=== PATIENT | female | born 1975 | race Caucasian/White ===

== ENCOUNTER → 2022-06-08 07:49 | Outpatient (CLI) | payer OTHER, SELFPAY ==
--- NOTE | 2022-06-08 | DI.MG.S_ITS ---
BILATERAL DIGITAL SCREENING MAMMOGRAM 3D/2D WITH CAD: 06/08/2022 CLINICAL: Routine screening. Family history of breast cancer. Comparison is made to exams dated: 05/03/2021 mammogram - [facility], 04/15/2020 mammogram - [facility], and 05/28/2021 mammogram - [facility]. There are scattered areas of fibroglandular density in both breasts (category b / 25%-50% glandular tissue). Current study was also evaluated with a Computer Aided Detection (CAD) system. No significant masses, calcifications, or other findings are seen in either breast. There has been no significant interval change. IMPRESSION: NEGATIVE There is no mammographic evidence of malignancy. A 1 year screening mammogram is recommended. Based on the Tyrer Cuzick model (a risk assessment model) the patient's lifetime risk is 7.6% and her 10 year risk is 1.5%. According to the ACR, ACS, and NCCN guidelines, an annual breast MRI exam along with mammogram is recommended if the patient's lifetime risk is 20% or greater. This exam was interpreted at Station ID: [id number]. NOTE: For mammograms, a report in lay terms will be sent to the patient. Approximately 15% of breast malignancies will not be visualized mammographically. In the management of a palpable breast mass, a negative mammogram must not discourage biopsy of a clinically suspicious lesion. Electronically Signed By: Jean-Claude reza/danny:06/08/2022 13:14:15 letter sent: Normal Exam ACR BI-RADS Category 1: Negative 3341F
== END ==
PROVIDERS: PCP Student in an Organized Health Care Education/Training Program; Referring Provider Student in an Organized Health Care Education/Training Program; Visit Provider Student in an Organized Health Care Education/Training Program
DX: Z12.31 Encounter for screening mammogram for malignant neoplasm of breast (principal); Z80.3 Family history of malignant neoplasm of breast
CPT/HCPCS: 77063; 77067

== ENCOUNTER → 2022-07-01 15:20 | Outpatient (CLI) | payer OTHER, SELFPAY | PROVIDERS: PCP Student in an Organized Health Care Education/Training Program; Referring Provider Internal Medicine; Visit Provider Internal Medicine | DX: Z23 Encounter for immunization (principal) | CPT/HCPCS: 90471; 90686 ==

== ENCOUNTER → 2022-11-10 07:43 | Outpatient (CLI) | payer OTHER, SELFPAY ==
[2022-11-10 08:26] LABS: Add Manual Diff / Slide Review NO; Basophils Absolute Auto 0 /uL (0-100); Basophils Percent Auto 0.6 % (0-2); Eosinophils Absolute Auto 200 /uL (0-450); Eosinophils Percent Auto 2.2 % (2-4); Hematocrit 38.2 % (36-46); Hemoglobin 12.6 g/dL (12.0-16.0); Lymphocytes Absolute Auto 2400 /uL (1100-4500); Lymphocytes Percent Auto 27.7 % (25-40); Mean Corpuscular HGB Conc 33.1 % (30-36); Mean Corpuscular Volume 90.8 fL (80-100); Monocytes Absolute Auto 500 /uL (0-900); Neutrophils Absolute Auto 5600 /uL (1500-7000); Neutrophils Percent Auto 63.5 % (50-75); Platelet Count 288 X10^3/uL (150-400); Red Blood Cell Count 4.21 X10^6/uL (4.0-5.2); Red Cell Distribution Width 14.2 % (11.6-14.8); White Blood Cell Count 8.8 X10^3/uL (4.5-11.0)
[2022-11-10 08:34] LABS: Hemoglobin A1C% w Est Avg Glu 5.7 % (4.0-6.0)
[2022-11-10 08:51] LABS: Alanine Aminotransferase 31 IU/L (<35); Albumin Globulin Ratio 1.3 (1.0-2.8); Alkaline Phosphatase 89 U/L (38-126); Aspartate Aminotransferase 23 IU/L (14-36); BUN Creatinine Ratio 23.8 (6-22); Bilirubin Total 0.2 mg/dL (0.2-1.3); Blood Urea Nitrogen 15 mg/dL (7-17); Calcium 8.6 mg/dL (8.4-10.2); Carbon Dioxide 27 mmol/L (22-32); Chloride 106 mmol/L (98-107); Cholesterol 165 mg/dL (140-199); Estimated Glomerular Filt Rate > 60 mL/min (>60); Globulin 3.1 g/dL (1.7-4.1); Glucose 106 mg/dL (70-100); HDL Cholesterol 43 mg/dL (40-60); HEMOLYSIS < 15 (0-50); LDL Cholesterol Calculated 110 mg/dL (<100); Potassium 4.5 mmol/L (3.4-5.1); Sodium 139 mmol/L (137-145); Total Protein 7.1 g/dL (6.3-8.2); Triglycerides 60 mg/dL (35-150)
[2022-11-10 08:57] LABS: Follicle Stimulating Hormone 11.3 mIU/mL; Luteinizing Hormone 23.9 mIU/mL
[2022-11-10 08:58] LABS: Vitamin D 25 Hydroxy (D3) 14.7 ng/mL (30.0-100.0)
[2022-11-10 09:16] LABS: TSH w/ Reflex to FT4 1.64 uIU/mL (0.47-4.68)
[2022-11-10 09:29] LABS: Vitamin B12 Reflex MMA if <400 234 pg/mL (239-931)
[2022-11-15 09:36] LABS: Methylmalonic Acid,Serum 154 nmol/L (0-378)
== END ==
PROVIDERS: PCP Student in an Organized Health Care Education/Training Program; Referring Provider Student in an Organized Health Care Education/Training Program; Visit Provider Student in an Organized Health Care Education/Training Program
DX: R53.83 Other fatigue (principal); E78.49 Other hyperlipidemia; R73.9 Hyperglycemia, unspecified
CPT/HCPCS: 36415; 80053; 80061; 82306; 82607; 83001; 83002; 83036; 83921; 84443; 85025

== ENCOUNTER → 2023-01-24 06:32 | Outpatient (CLI) | payer OTHER, SELFPAY ==
--- NOTE | 2023-01-24 | DI.US.S_ITS ---
PROCEDURE: US PELVIC COMPLETE INDICATIONS: DUB TECHNIQUE: Real-time scanning was performed of the pelvic organs, with image documentation. Additional endovaginal scanning was necessary due to incomplete visualization of the adnexal and endometrial structures by transabdominal scanning. COMPARISON: None. FINDINGS: Uterus: Uterus is anteverted and normal in size at 9 x 5.1 x 6 cm. The myometrium is heterogeneous, with fibroids seen. The largest fibroid is a subserosal fibroid seen along the posterior uterus measuring up to 1.5 cm. The endometrium measures 5 mm combined thickness. No abnormal vascularity can be seen along the endometrial stripe. Ovaries: Neither ovary is seen. No adnexal masses are seen on either side. Other: No pathologic free abdominal or pelvic fluid. IMPRESSION: A cause of the patient's presenting history is not identified. Neither ovary is seen. Incidental note is made of a 1.5 cm subserosal fibroid posteriorly. We strive to produce accurate, complete, and clear reports of imaging services. To assist us in improving patient care, this report was composed using standard report templates and voice recognition software. Therefore, it may contain abnormal punctuation, insertions and/or omissions. Occasional wrong-word or sound-alike substitutions may occur. Though we review the report and make efforts to correct it, we do recommend that the report be read carefully in proper context to recognize any text inaccuracies. Dictated by: Oliver Sin M.D. on 01/24/2023 at 11:11 Approved by: Oliver Sin M.D. on 01/24/2023 at 11:13
== END ==
PROVIDERS: PCP Student in an Organized Health Care Education/Training Program; Referring Provider Student in an Organized Health Care Education/Training Program; Visit Provider Student in an Organized Health Care Education/Training Program
DX: N93.9 Abnormal uterine and vaginal bleeding, unspecified (principal); D25.2 Subserosal leiomyoma of uterus
CPT/HCPCS: 76830; 76856

== ENCOUNTER → 2023-05-19 08:27 | Outpatient (CLI) | payer OTHER, SELFPAY ==
--- NOTE | 2023-05-19 08:29 | DI.RAD.S_ITS ---
PROCEDURE: XR FINGER LT MIN 2V INDICATIONS: Possible foreign body/splinter TECHNIQUE: AP hand, 2 views of the 1st finger(s) acquired. COMPARISON: None. FINDINGS: Bones: No fractures or dislocations. No suspicious bony lesions. Soft tissues: No suspicious soft tissue calcifications. No radiopaque foreign body. IMPRESSION: No radiopaque foreign body demonstrated. Dictated by: Jean-Claude Penn M.D. on 05/19/2023 at 10:04 Approved by: Jean-Claude Penn M.D. on 05/19/2023 at 10:06
== END ==
PROVIDERS: PCP Student in an Organized Health Care Education/Training Program; Referring Provider Nurse Practitioner Family; Visit Provider Nurse Practitioner Family
DX: S60.459A Superficial foreign body of unspecified finger, initial encounter (principal)
CPT/HCPCS: 73140

== ENCOUNTER → 2023-12-25 07:00 | Outpatient (CLI) | payer OTHER, SELFPAY ==
[2023-12-25 07:24] LABS: Add Manual Diff / Slide Review NO; Basophils Absolute Auto 0 /uL (0-100); Basophils Percent Auto 0.5 % (0-2); Eosinophils Absolute Auto 200 /uL (0-450); Eosinophils Percent Auto 2.4 % (2-4); Hematocrit 37.7 % (36-46); Hemoglobin 12.6 g/dL (12.0-16.0); Lymphocytes Absolute Auto 2800 /uL (1100-4500); Lymphocytes Percent Auto 36.5 % (25-40); Mean Corpuscular HGB Conc 33.3 % (30-36); Mean Corpuscular Hemoglobin 30.6 PG (26-34); Mean Corpuscular Volume 91.6 fL (80-100); Monocytes Absolute Auto 500 /uL (0-900); Monocytes Percent Auto 6.4 % (3-14); Neutrophils Absolute Auto 4200 /uL (1500-7000); Neutrophils Percent Auto 54.2 % (50-75); Platelet Count 285 X10^3/uL (150-400); Red Blood Cell Count 4.11 X10^6/uL (4.0-5.2); Red Cell Distribution Width 13.7 % (11.6-14.8); White Blood Cell Count 7.8 X10^3/uL (4.5-11.0)
[2023-12-25 07:34] LABS: Hemoglobin A1C% w Est Avg Glu 5.8 % (4.0-6.0)
[2023-12-25 07:46] LABS: Alanine Aminotransferase 52 IU/L (<35); Albumin 4.5 g/dL (3.5-5.0); Albumin Globulin Ratio 1.5 (1.0-2.8); Alkaline Phosphatase 69 U/L (38-126); Aspartate Aminotransferase 32 IU/L (14-36); BUN Creatinine Ratio 22.7 (6-22); Bilirubin Total 0.6 mg/dL (0.2-1.3); Blood Urea Nitrogen 15 mg/dL (7-17); Calcium 9.1 mg/dL (8.4-10.2); Carbon Dioxide 26 mmol/L (22-32); Chloride 109 mmol/L (98-107); Cholesterol 159 mg/dL (140-199); Estimated Glomerular Filt Rate > 60 mL/min (>60); Globulin 3.1 g/dL (1.7-4.1); Glucose 115 mg/dL (70-100); HDL Cholesterol 37 mg/dL (40-60); HEMOLYSIS < 15 (0-50); LDL Cholesterol Calculated 98 mg/dL (<100); Potassium 4.1 mmol/L (3.4-5.1); Sodium 140 mmol/L (137-145); Total Protein 7.6 g/dL (6.3-8.2); Triglycerides 120 mg/dL (35-150)
[2023-12-25 08:02] LABS: Vitamin D 25 Hydroxy (D3) 37.9 ng/mL (30.0-100.0)
[2023-12-25 08:34] LABS: Vitamin B12 Reflex MMA if <400 364 pg/mL (239-931)
[2023-12-27 07:35] LABS: Methylmalonic Acid,Serum 144 nmol/L (0-378)
== END ==
LOC: LAB 07:02
PROVIDERS: PCP Student in an Organized Health Care Education/Training Program; Referring Provider Student in an Organized Health Care Education/Training Program; Visit Provider Student in an Organized Health Care Education/Training Program
DX: R73.03 Prediabetes (principal); E55.9 Vitamin D deficiency, unspecified; E78.49 Other hyperlipidemia; R79.89 Other specified abnormal findings of blood chemistry; R63.5 Abnormal weight gain
CPT/HCPCS: 36415; 80053; 80061; 82306; 82607; 83036; 83921; 84443; 85025

== ENCOUNTER → 2024-02-15 11:45 | Outpatient (CLI) | payer OTHER, SELFPAY ==
--- NOTE | 2024-02-28 10:52 | DIET.OUTPTC ---
Dietary Outpatient Consultation Note Consultation Date: 02/15/2024 Assessment: 49 y F referred to dietitian for pre-diabetes, other hyperlipidemia, BMI 39.0-39.9. Tatiana is wanting to prevent diabetes and help with sustainable eating patterns. Has busy job/high stress job. Dietary recall: Avg 2 meals/day, difficult to find time for lunch at work B- eggs or breakfast at bistro, misses breakfast sometimes, 2-3x/wk D- Hellofresh, new meals every night, wants to keep meals new and interesting Reports chocolate intake at various times during day, candies are easily accessible at work Drinks: water, 32 oz/d Activity: 1 mile walk/day at work, 3x/wk walk dog 15-30 min, likes riding e-bike Ht: 1.575 m Wt: 98.4 kg BMI: 39.68 Weight history: 05/22/23: 95.254 kg per chart Related labs: A1c 5.8% on 12/25/23, HDL 37 on 12/25/23 Nutrition Diagnosis: Excessive energy intake r/t inconsistent meals and energy dense snack choices aeb dietary recall Inadequate fiber intake r/t convenience snacks, missed meals aeb dietary recall Interventions: 1. Consistent meals/snacks -Patient driven goal setting, addressed barriers and assessed confidence 2. Plate method for balanced meals/snacks -provided educ on food r/t pre-DM, macros, label reading, portion sizing Goals: 1. Consistent breakfast and lunch by using alarm, use of lunch adiel or blocking out time in outlook calendar for lunch 2. Bringing non-perishable snacks to store in office for easy lunch or stopping at bistro 3. Increase fruit or vegetable intake as able by using grocery deliveries for fruit 1x/day and extra vegetables to add to hellofresh meals Monitoring/Evaluations: dietary recall, goals, labs Electronically Signed by: Elda Nino 02/28/24 10:52 Clinical Dietitian [address] [address]
== END ==
PROVIDERS: PCP Student in an Organized Health Care Education/Training Program; Referring Provider Student in an Organized Health Care Education/Training Program
DX: R73.03 Prediabetes (principal); E78.49 Other hyperlipidemia; Z71.3 Dietary counseling and surveillance; Z68.39 Body mass index [BMI] 39.0-39.9, adult
CPT/HCPCS: 97802

== ENCOUNTER → 2024-03-01 09:20 | Outpatient (CLI) | payer OTHER, SELFPAY ==
[2024-03-01 12:05] LABS: Alanine Aminotransferase 40 IU/L (<35); Albumin 4.5 g/dL (3.5-5.0); Albumin Globulin Ratio 1.4 (1.0-2.8); Alkaline Phosphatase 75 U/L (38-126); Aspartate Aminotransferase 29 IU/L (14-36); Bilirubin Total 0.6 mg/dL (0.2-1.3); Bilirubin Unconjugated 0.1 mg/dL (0.0-1.1); Globulin 3.2 g/dL (1.7-4.1); HEMOLYSIS < 15 (0-50); Total Protein 7.7 g/dL (6.3-8.2)
== END ==
PROVIDERS: PCP Student in an Organized Health Care Education/Training Program; Referring Provider Student in an Organized Health Care Education/Training Program; Visit Provider Student in an Organized Health Care Education/Training Program
DX: R74.01 Elevation of levels of liver transaminase levels (principal)
CPT/HCPCS: 36415; 80076

== ENCOUNTER → 2024-03-12 13:04 | Outpatient (CLI) | payer OTHER, SELFPAY ==
--- NOTE | 2024-03-12 16:02 | DIET.OUTPTC ---
Dietary Outpatient Consultation Note Consultation Date: 03/12/2024 Assessment: 49 y F referred to dietitian for pre-diabetes, other hyperlipidemia, BMI 39.0-39.9. Nutrition f/u. Tatiana reports consumption of breakfast and lunch and additional water intake has been successful. Reports decrease in chocolate consumption. Is neutral on hunger/fullness scale when it is lunch and dinner time. Notes whole grains help keep her full for longer. Has questions regarding nutrition when starting Ozempic. Dietary recall: B-whole grain toast with either whipped cream cheese or cottage cheese w/ cucumbers L-soup from [employer] D- Hellofresh, new meals every night, wants to keep meals new and interesting Drinks: water, 32 oz/d +3 mugs (10-12 oz)= 62-68 oz Reviewed content of 2 meals on Hellofresh. Av-11 g SFA, 6-7 g fiber, ~40 g protein, 60 g CHO Activity: 1 mile walk/day at work, 3x/wk walk dog 15-30 min, likes riding e-bike Ht: 1.575 m Wt: 98.4 kg BMI: 39.68 Weight history: 05/22/23: 95.254 kg per chart Related labs: A1c 5.8% on 12/25/23, HDL 37 on 12/25/23 Nutrition Diagnosis: Initial -Excessive energy intake r/t inconsistent meals and energy dense snack choices aeb dietary recall Initial- Inadequate fiber intake r/t convenience snacks, missed meals aeb dietary recall Interventions: 1. Consistent meals/snacks -Continue current implementations, encouraged consistent protein source at breakfast, especially with start of Ozempic 2. Adequate protein/energy intake -Discussed adequate intake w/ start and continuation of Ozempic -Reviewed label reading Goals: 1. Continue consistent breakfast and lunch, protein source at each 2. Continue adequate fluid intake 3. Adequate fiber intake w/ whole grain or double portion veg at dinner as able Monitoring/Evaluations: dietary recall, goals, labs Electronically Signed by: Elda Nino 03/12/24 16:02 Clinical Dietitian [address] [address]
== END ==
PROVIDERS: PCP Student in an Organized Health Care Education/Training Program; Referring Provider Student in an Organized Health Care Education/Training Program
DX: R73.03 Prediabetes (principal); E78.49 Other hyperlipidemia; Z68.39 Body mass index [BMI] 39.0-39.9, adult; Z71.3 Dietary counseling and surveillance
CPT/HCPCS: 97803

== ENCOUNTER → 2024-05-08 12:55 | Outpatient (CLI) | payer OTHER, SELFPAY ==
--- NOTE | 2024-05-08 16:36 | DIET.OUTPTC ---
Dietary Outpatient Consultation Note Consultation Date: 05/08/2024 Assessment: 49 y F referred to dietitian for pre-diabetes, other hyperlipidemia, BMI 39.0-39.9. Nutrition f/u. Pt continues to meet goals set around meals and fluids and has noted positive differences including energy and mood. Has increased activity to 4x/wk of biking/walking. Wants to continue working on adequate fiber intake. Notes was unable to get wegovy from pharmacy at this time. Dietary recall remains the same as last visit. Is cooking dinner some nights over meal services. Interventions: 1. Continue current implementations + additional fiber source w/ lunch or snack when home from work to meet fiber goals 2. Reviewed macronutrients, macro distribution F/u in 6-8 wks. Electronically Signed by: Elda Nino 05/08/24 16:36 Clinical Dietitian [address] [address]
== END ==
PROVIDERS: PCP Student in an Organized Health Care Education/Training Program; Referring Provider Student in an Organized Health Care Education/Training Program
DX: R73.03 Prediabetes (principal); E78.49 Other hyperlipidemia; Z68.39 Body mass index [BMI] 39.0-39.9, adult; Z71.3 Dietary counseling and surveillance
CPT/HCPCS: 97803

== ENCOUNTER → 2024-05-15 08:00 | Outpatient (CLI) | payer OTHER, SELFPAY ==
--- NOTE | 2024-05-15 | DI.MG.S_ITS ---
BILATERAL DIGITAL SCREENING MAMMOGRAM 3D/2D WITH CAD: 05/15/2024 CLINICAL: Routine screening. Family history of breast cancer. Comparison is made to exams dated: 06/08/2022 mammogram - [facility], 05/03/2021 mammogram - [facility], and 04/15/2020 mammogram - [facility]. There are scattered areas of fibroglandular density in both breasts (category b / 25%-50% glandular tissue). Current study was also evaluated with a Computer Aided Detection (CAD) system. No significant masses, calcifications, or other findings are seen in either breast. There has been no significant interval change. IMPRESSION: NEGATIVE There is no mammographic evidence of malignancy. A 1 year screening mammogram is recommended. Based on the Tyrer Cuzick model (a risk assessment model) the patient's lifetime risk is 7.7% and her 10 year risk is 1.7%. According to the ACR, ACS, and NCCN guidelines, an annual breast MRI exam along with mammogram is recommended if the patient's lifetime risk is 20% or greater. This exam was interpreted at Station ID: [id number]. NOTE: For mammograms, a report in lay terms will be sent to the patient. Approximately 15% of breast malignancies will not be visualized mammographically. In the management of a palpable breast mass, a negative mammogram must not discourage biopsy of a clinically suspicious lesion. Electronically Signed By: Violet Keita M.D., Ph.D. eliceo/danny:05/15/2024 12:46:23 letter sent: Normal Exam ACR BI-RADS Category 1: Negative 3341F
== END ==
LOC: MAMMO 08:00
PROVIDERS: PCP Student in an Organized Health Care Education/Training Program; Referring Provider Student in an Organized Health Care Education/Training Program; Visit Provider Student in an Organized Health Care Education/Training Program
DX: Z12.31 Encounter for screening mammogram for malignant neoplasm of breast (principal); R92.323 Mammographic fibroglandular density, bilateral breasts; Z80.3 Family history of malignant neoplasm of breast
CPT/HCPCS: 77063; 77067

== ENCOUNTER → 2024-06-05 11:31 | Outpatient (CLI) | payer OTHER, SELFPAY ==
--- NOTE | 2024-06-10 16:12 | DIET.OUTPTC ---
Dietary Outpatient Consultation Note Consultation Date: 06/05/2024 Assessment: 49 y F referred to dietitian for pre-diabetes, other hyperlipidemia, BMI 39.0-39.9. Nutrition f/u. Assessment: Pt continues to meet goals from previous sessions. Has worked to choose meals higher in fiber on hellofresh. Had started doing active sailing during the sailing season. Interventions: -During today's session we called pharmacies to find out which ones had wegovy available. Has been rx wegovy and interested in starting, but [facility] didn't have them in stock. Pt still desires to start medication. Found a pharmacy with it in stock. Pharmacy reported they will request her rx gets sent over to them. -Discussed that with possible decrease in appetite, small freq meals/snack with protein source may be helpful to support muscle mass and nutrition needs when weight loss is occurring. F/u in September. Electronically Signed by: Elda Nino 06/10/24 16:12 Clinical Dietitian [address] [address]
== END ==
PROVIDERS: PCP Student in an Organized Health Care Education/Training Program; Referring Provider Student in an Organized Health Care Education/Training Program
DX: R73.03 Prediabetes (principal); E78.5 Hyperlipidemia, unspecified; Z68.39 Body mass index [BMI] 39.0-39.9, adult; Z71.3 Dietary counseling and surveillance
CPT/HCPCS: 97803

== ENCOUNTER → 2024-07-05 18:47 | Outpatient (CLI) | payer OTHER, SELFPAY | PROVIDERS: PCP Student in an Organized Health Care Education/Training Program; Referring Provider Internal Medicine; Visit Provider Internal Medicine | DX: Z23 Encounter for immunization (principal) | CPT/HCPCS: 90471; 90656 ==

== ENCOUNTER → 2024-09-19 12:43 | Outpatient (CLI) | payer OTHER, SELFPAY ==
--- NOTE | 2024-10-01 14:45 | DIET.OUTPTC ---
Dietary Outpatient Consultation Note Consultation Date: 09/19/2024 Assessment: 49 y F referred to dietitian for pre-diabetes, other hyperlipidemia, BMI 39.0-39.9. Patient has stopped doing already prepped meals like hellofresh and has plans to do the meal prep. Is worried about implementing this and keeping up with eating healthy. Would like to create meal plans to help with this transition. Ht: 1.575 m Wt: 98.4 kg BMI: 39.68 Weight history: 05/22/23: 95.254 kg per chart Related labs: A1c 5.8% on 12/25/23, HDL 37 on 12/25/23 Interventions: 1. Did one week of meal planning balanced meals that were feasible with patient's schedule and likes Goals: 1. Weekly meal planning and grocery shopping using plate method to guide portions, including CHO Monitoring/Evaluations: dietary recall, goals, labs, f/u in 1 month Electronically Signed by: Elda Nino 10/01/24 14:45 Clinical Dietitian [address] [address]
== END ==
PROVIDERS: PCP Student in an Organized Health Care Education/Training Program; Referring Provider Student in an Organized Health Care Education/Training Program
DX: R73.03 Prediabetes (principal); E78.49 Other hyperlipidemia; Z71.3 Dietary counseling and surveillance; Z68.39 Body mass index [BMI] 39.0-39.9, adult
CPT/HCPCS: 97803

== ENCOUNTER → 2024-10-16 13:11 | Outpatient (CLI) | payer OTHER, SELFPAY ==
--- NOTE | 2024-10-17 11:52 | DIET.OUTPTC ---
Dietary Outpatient Consultation Note Consultation Date: 10/16/2024 Assessment: 49 y F referred to dietitian for pre-diabetes, other hyperlipidemia, BMI 39.0-39.9. Patient has gone back to doing hellofresh due to school starting. Reviewed meal options and found dinner meals selected were higher in carbs and saturated fat. New breakfast option includes [employer]life milk 8 oz + 2/3 granola + fruit. Pt continues striving for consistent meals. Reports overall improvement in maintaining consistent meals (i.e having breakfast and lunch) since start of MNT. Related labs: A1c 5.8% on 12/25/23, HDL 37 on 12/25/23 Nutrition dx: Excessive carbohydrate intake r/t higher carb hellofresh meals aeb 80 g CHO at dinner meal Interventions: 1. Reviewed recc CHO intake at meals 2. Discussed modifications to make to meals to reduce CHO and saturated fats Goals: 1. For 80 g pasta/rice based meals on hellofresh reduce pasta serving by 1/2, add extra non-starchy veg or protein source -Goal of 30-45 g carbs at meals, 15-30 g carbs at snacks 2. Sub oil over butter for reduced saturated fats at meals Monitoring/Evaluations: dietary recall, goals, labs, f/u in 1 month Electronically Signed by: Elda Nino 10/17/24 11:52 Clinical Dietitian [address] [address]
== END ==
PROVIDERS: PCP Student in an Organized Health Care Education/Training Program; Referring Provider Student in an Organized Health Care Education/Training Program
DX: R73.03 Prediabetes (principal); E78.49 Other hyperlipidemia; Z71.3 Dietary counseling and surveillance; Z68.39 Body mass index [BMI] 39.0-39.9, adult
CPT/HCPCS: 97803

== ENCOUNTER → 2024-11-27 12:54 | Outpatient (CLI) | payer OTHER, SELFPAY ==
--- NOTE | 2024-11-27 16:51 | DIET.OUTPTC ---
Dietary Outpatient Consultation Note Consultation Date: 11/27/2024 Assessment: 49 y F referred to dietitian for pre-diabetes, other hyperlipidemia, BMI 39.0-39.9. Pt reports still unable to get insurance coverage for GLP-1 despite trying coupon and new rx for zepbound. Has been adjusting dinner meals to reduce CHO portion to 45 g and choosing lower saturated fat meals. Current nutrition routine is working well, feels difference in having a protein source at breakfast now through hunger levels in afternoon. Activity is daily walk to work 1/2 mi total, group walks Discussed supportive role of family/spouse. Pt reports preference for continuing with f/u q6wks for accountability. Interventions: -Reviewed meal options w/ hello fresh (upcoming weekly order, past orders) -Discussed physical activity and resistance training Goal: -1x/wk 20 minutes doing resistance training in home gym on weekend day Monitoring/Evaluations: f/u 6wks Electronically Signed by: Elda Nino 11/27/24 16:51 Clinical Dietitian [address] [address]
== END ==
PROVIDERS: PCP Student in an Organized Health Care Education/Training Program; Referring Provider Student in an Organized Health Care Education/Training Program
DX: R73.03 Prediabetes (principal); E78.49 Other hyperlipidemia; Z68.39 Body mass index [BMI] 39.0-39.9, adult; Z71.3 Dietary counseling and surveillance
CPT/HCPCS: 97803

== ENCOUNTER → 2025-01-08 12:47 | Outpatient (CLI) | payer OTHER, SELFPAY ==
--- NOTE | 2025-01-09 16:38 | DIET.OUTPTC ---
Dietary Outpatient Consultation Note Consultation Date: 01/07/2025 Assessment: 49 y F referred to dietitian for pre-diabetes, other hyperlipidemia, BMI 39.0-39.9. Pt would like to go over the Mediterranean diet. Is still walking + doing active sailing races 1x/wk. Still plans implement weekend strength training as well. Diet recall: KIND granola (nutrition facts reviewed) + fairlife milk (45g CHO total) soup from [employer] fresh dinner (45 g CHO) Interventions: -Discussed the MeD. dietary style of eating Goal: -1x/wk 20 minutes doing resistance training in home gym on weekend day -Add 1 c fruit like berries Monitoring/Evaluations: f/u after class ends in February, pt will then transition to cooking dinners at home again over [employer] Electronically Signed by: Elda Nino 01/09/25 16:38 Clinical Dietitian [address] [address]
== END ==
LOC: DIET 12:47
PROVIDERS: PCP Student in an Organized Health Care Education/Training Program; Referring Provider Student in an Organized Health Care Education/Training Program
DX: R73.03 Prediabetes (principal); E78.49 Other hyperlipidemia; Z68.39 Body mass index [BMI] 39.0-39.9, adult; Z71.3 Dietary counseling and surveillance
CPT/HCPCS: 97803

== ENCOUNTER → 2025-01-10 08:30 | Outpatient (CLI) | payer OTHER, SELFPAY ==
--- NOTE | 2025-01-10 08:31 | DI.RAD.S_ITS ---
PROCEDURE: XR WRIST LT MIN 3V INDICATIONS: fall onto wrist radial pain TECHNIQUE: 4 views of the wrist were acquired. COMPARISON: None. FINDINGS: Bones: Punctate cortical fragment at the lateral margin of the trapeziometacarpal joint may represent acute fracture. No other fractures or dislocations. No suspicious bony lesions. Soft tissues: No suspicious soft tissue calcifications. IMPRESSION: Small cortical fragment laterally adjacent to the TMC joint may represent acute fracture. No other evidence of acute osseous abnormality. Dictated by: Jerome Palmer M.D. on 01/11/2025 at 23:52 Approved by: Jerome Palmer M.D. on 01/11/2025 at 23:54
== END ==
PROVIDERS: PCP Student in an Organized Health Care Education/Training Program; Referring Provider Chiropractor; Visit Provider Chiropractor
DX: S63.502A Unspecified sprain of left wrist, initial encounter (principal); W19.XXXA Unspecified fall, initial encounter
CPT/HCPCS: 73110

== ENCOUNTER → 2025-01-16 07:27 | Outpatient (CLI) | payer OTHER, SELFPAY ==
--- NOTE | 2025-01-16 07:29 | DI.RAD.S_ITS ---
PROCEDURE: XR WRIST LT MIN 3V INDICATIONS: Evaluate left wrist injury TECHNIQUE: Four views of the left wrist were acquired. COMPARISON: [facility], , XR WRIST LT MIN 3V, 01/10/2025, 8:35. FINDINGS: Bones: There are no osseous abnormalities Joints: The joint spaces are normal in width and alignment without arthritic change. Soft tissues: No soft tissue abnormality. IMPRESSION: Normal. Dictated by: Eugene Vann M.D. on 01/16/2025 at 8:28 Approved by: Eugene Vann M.D. on 01/16/2025 at 8:29
== END ==
PROVIDERS: PCP Student in an Organized Health Care Education/Training Program; Referring Provider Orthopaedic Surgery Adult Reconstructive Orthopaedic Surgery; Visit Provider Orthopaedic Surgery Adult Reconstructive Orthopaedic Surgery
DX: M25.532 Pain in left wrist (principal)
CPT/HCPCS: 73110

== ENCOUNTER → 2025-03-12 12:54 | Outpatient (CLI) | payer OTHER, SELFPAY ==
--- NOTE | 2025-03-13 13:28 | DIET.OUTPTC ---
Dietary Outpatient Consult Consult Date:03/12/25 Assessment:? 50 y referred to dietitian for pre DM Pending new dietary referral, thus short visit. Recent A1c 5.9%. Provided meal planning resource and briefly discussed over the counter CGM. Monitoring/Evaluations:? F/u monthly Electronically Signed by: Elda Nino Clinical Dietitian [address] [address]
--- NOTE | 2025-04-01 08:43 | DIET.OUTPTC ---
Dietary Outpatient Consult Consultation Date: 03/12/25 Assessment: 49 y F referred to dietitian for pre-diabetes, other hyperlipidemia, BMI 39.0-39.9. Reports latest A1c is now 5.9% despite CHO controlled meals and pairing of macros and increased fiber intake and increase in exercise. Discussed over the counter CGM as options for tracking sugars. Switching away from hellofresh to meal prepping again. Is doing resistance exercise on weekend. Interventions: -Reviewed over the counter CGM options as desired -Created meal plan Goal: -Weekly meal plans to help with meals/grocery shopping -Continue resistance exercise weekly + active sailing weekly +walks Monitoring/Evaluations: Monthly follow ups Electronically Signed by: Elda Nino Clinical Dietitian [address] [address]
== END ==
LOC: DIET 12:55
PROVIDERS: Family Provider Student in an Organized Health Care Education/Training Program; PCP Student in an Organized Health Care Education/Training Program; Referring Provider Student in an Organized Health Care Education/Training Program
DX: R73.03 Prediabetes (principal); E78.49 Other hyperlipidemia; Z68.39 Body mass index [BMI] 39.0-39.9, adult; Z71.3 Dietary counseling and surveillance
CPT/HCPCS: 97803

== ENCOUNTER → 2025-04-16 12:45 | Outpatient (CLI) | payer OTHER, SELFPAY ==
--- NOTE | 2025-04-17 13:22 | DIET.OUTPTC ---
Dietary Outpatient Consult Consult Date:04/16/25 Assessment: 50 y F referred to dietitian for pre-diabetes, other hyperlipidemia, BMI 39.0-39.9. Switched back to hellofresh, found going out to eat more often without it. Has noticed reduced change in pant size - waist and thighs and overall a 5 lb weight loss. Still feeling meals are enough to feel full and satisfied. Eats with others at meals to help slow pace of eating and able to identify when full. Considering CGM trial. Doing walks and bike rides on , weights on Saturdays (arms/core) and does 5 minute resistance/balance activity in morning daily (i.e wall push ups, squats) Interventions: -Reviewed hellofresh meals, great protein sources and 6-10 g fiber at each meal, some around 18 g SFA -Discussed activity Goal: -<10g sat. fat at hellofresh meals -Add 1 more day resistance workout Monitoring/Evaluations: doing well, f/u scheduled end of may. Electronically Signed by: Elda Nino Clinical Dietitian [address] [address]
== END ==
PROVIDERS: Family Provider Student in an Organized Health Care Education/Training Program; PCP Student in an Organized Health Care Education/Training Program; Referring Provider Student in an Organized Health Care Education/Training Program
DX: R73.03 Prediabetes (principal); E78.49 Other hyperlipidemia; Z68.39 Body mass index [BMI] 39.0-39.9, adult; Z71.3 Dietary counseling and surveillance
CPT/HCPCS: 97803

== ENCOUNTER → 2025-06-05 12:55 | Outpatient (CLI) | payer OTHER, SELFPAY ==
--- NOTE | 2025-06-10 15:11 | DIET.OUTPTC ---
Dietary Outpatient Consult Consult Date:06/05/25 Assessment: 50 y F referred to dietitian for pre-diabetes, other hyperlipidemia, BMI 39.0-39.9. Got CGM trial for 1 months, reports this was helpful in guiding food choices and noting which food led to spikes. Will likely trial again in the future. Lost 8 lb since last visit. Is starting tirzepatide now. Interventions: -Discussed nutrition related to new medication - i.e. small freq meals as needed, adequate protein intake with weight loss, common GI side effects and monitoring saturated fat and alcohol intake if these occur -Reviewed high soluble fiber foods and provided handout Goal: -<10g sat. fat at hellofresh meals -65-85 g protein daily Monitoring/Evaluations: doing well, f/u scheduled Electronically Signed by: Elda Nino Clinical Dietitian [address] [address]
== END ==
LOC: DIET 12:55
PROVIDERS: Family Provider Student in an Organized Health Care Education/Training Program; PCP Student in an Organized Health Care Education/Training Program; Referring Provider Student in an Organized Health Care Education/Training Program
DX: R73.03 Prediabetes (principal); E78.49 Other hyperlipidemia; Z68.39 Body mass index [BMI] 39.0-39.9, adult; Z71.3 Dietary counseling and surveillance
CPT/HCPCS: 97803

== ENCOUNTER → 2025-06-12 12:59 | Outpatient (CLI) | payer OTHER, SELFPAY ==
--- NOTE | 2025-06-12 13:00 | DI.MG.S_ITS ---
MM screening mammo BI: 06/12/2025. BI-RADS: 1 CLINICAL: 50-year old female for bilateral screening mammogram. Tyrer-Cuzick lifetime risk of 11.6%. Current reported family history of breast cancer: mother. The patient reports testing negative for BRCA gene mutation. PRIOR EXAMS 05/15/2024, 06/08/2022, 05/28/2021, 05/03/2021. MAMMOGRAPHY TECHNIQUE: 2D and 3D (tomosynthesis) digital mammographic views obtained, with additional images as needed for full coverage. Current study was also evaluated with a Computer Aided Detection (CAD) system. DENSITY B. There are scattered areas of fibroglandular density. MAMMOGRAPHY FINDINGS Bilateral: No suspicious mass, asymmetry, microcalcification, or other abnormality seen. IMPRESSION: * No evidence of malignancy. RECOMMENDATIONS Bilateral * Annual screening mammography. OVERALL ASSESSMENT CATEGORY BI-RADS-1: Negative. The [employer] recommends annual screening mammography beginning at age 40 for women with average risk of breast cancer. ELECTRONICALLY SIGNED: Janeth Raines M.D. on 06/12/2025 at 10:44:39 PM PT Interpreting Station ID: [id number]
== END ==
LOC: MAMMO 13:00
PROVIDERS: Family Provider Student in an Organized Health Care Education/Training Program; PCP Student in an Organized Health Care Education/Training Program; Referring Provider Student in an Organized Health Care Education/Training Program; Visit Provider Student in an Organized Health Care Education/Training Program
DX: Z12.31 Encounter for screening mammogram for malignant neoplasm of breast (principal); Z80.3 Family history of malignant neoplasm of breast
CPT/HCPCS: 77063; 77067

== ENCOUNTER → 2025-08-14 12:49 | Outpatient (CLI) | payer OTHER, SELFPAY ==
--- NOTE | 2025-08-14 16:42 | DIET.OUTPTC ---
Dietary Outpatient Consult Consult Date:08/14/25 Assessment: 50 y F referred to dietitian for pre-diabetes, other hyperlipidemia, BMI 39.0-39.9. 17 lb weight loss in 6 weeks per pt (avg 3 lb per week). Continues on trizepatide .25 mg, will be increasing to .5 mg. No lasting GI side effects. Is not skipping meals. Meeting protein needs. Diet recall reviewed: protein cereal milk in morning (30 g protein), 4 oz meat from bistro (28 g protein), hello fresh high protein dinner most or all of protein and veg, 1/2 carb (30-40 g protein). Continues using CGM, all BG <180 from data observed, majority post meals <150. Avg glucose 114. Hx of it being in 120s when first started using CGM. Wants to work on increasing omega 3 fatty acids in diet. Interventions: -Reviewed diet recall, weight loss -Reviewed CGM data and used ADA calculation to provide est A1c based on avg BG (5.6%) -Provided handout on ALA, EPA, DHA sources and reviewed types of fat and sources Goal: -4-6 oz salmon 2x/week -Continue to meet at least 80-95 g protein daily (1.3-1.5g/kg of adjusted IBW per wt loss and activity) Monitoring/Evaluations: doing well, f/u scheduled November Electronically Signed by: Elda Nino Clinical Dietitian [address] [address]
== END ==
LOC: DIET 12:49
PROVIDERS: PCP Student in an Organized Health Care Education/Training Program; Referring Provider Student in an Organized Health Care Education/Training Program
DX: R73.03 Prediabetes (principal); E78.49 Other hyperlipidemia; Z68.39 Body mass index [BMI] 39.0-39.9, adult; Z71.3 Dietary counseling and surveillance
CPT/HCPCS: 97803